=== PATIENT | female | born 1945 | race Two or more races ===

== ENCOUNTER 2022-09-18 11:06 | Day surgery (SDC) | payer MEDICARE, MEDICAID ==
[~2022-09-18] VITALS: Ht 152.4 cm; Wt 63.5 kg
[~2022-09-18 11:06] MED LIST: AMLO-489 PO; CLON0.3D4 PO; FURO1TAB31 PO; LOSA-39 PO; PERCOT PO; TIZA4TAB9 PO
[2022-09-18] MEDS ORDERED: MIDAZOLAM HCL 2MG/2ML 2ml VIAL (1mg/ml) IV ONE (12:00)
[2022-09-18] MEDS ORDERED: diphenhdrAMINE HCL 50 MG/1 ML VL IV ONE (12:00)
[2022-09-18] MEDS ORDERED: LIDOCAINE VISCOUS 2% 15ML UD PO ONE (12:00)
[2022-09-18] MEDS ORDERED: fentaNYL CITRATE 100 MCG/2 ML VL IV ONE (12:00)
== END 2022-09-18 14:28 | disposition home or self-care (01) ==
LOC: CATH 11:06
PROVIDERS: ATTEND Internal Medicine
DX: I08.1 Rheumatic disorders of both mitral and tricuspid valves (principal); I12.9 Hypertensive chronic kidney disease with stage 1 through stage 4 chronic kidney disease, or unspecified chronic kidney disease; N18.30 Chronic kidney disease, stage 3 unspecified; J44.9 Chronic obstructive pulmonary disease, unspecified; Z88.2 Allergy status to sulfonamides; Z79.899 Other long term (current) drug therapy; Z98.890 Other specified postprocedural states; Z20.822 Contact with and (suspected) exposure to COVID-19
CPT/HCPCS: 93005; 93312; J2250; J3010; J7040; U0003; 99152